=== PATIENT | female | born 1945 | race Caucasian/White ===

== ENCOUNTER 2018-01-20 21:26 | Inpatient (IN) | payer OTHER ==
[2018-01-20] MEDS: fentaNYL PF VIAL 100 MCG/2 ML VIAL IV (22:19)
[2018-01-20] MEDS: IV NORMAL SALINE 1000ML BAG 1,000 ML IV (22:24)
[2018-01-20] MEDS: ONDANSETRON PF 4 MG/2 ML VIAL. IV (23:30)
[2018-01-20] MEDS: MORPHINE SULFATE 4 MG/ML DISP.SYRIN. IV (23:57)
[2018-01-21] MEDS: MORPHINE SULFATE 4 MG/ML DISP.SYRIN. IV ×9 (02:21→16:59)
[2018-01-21 04:55] LABS: ADD MAN DIFF? NO
[2018-01-21 05:04] LABS: BASO % 0 % (0-3); EOS # 0.1 x10^3/uL (0.0-0.7); EOS % 1 % (0-3); HEMATOCRIT 39.9 % (36.0-47.0); HEMOGLOBIN 13.7 g/dL (12.0-15.5); LYMPH # 0.8 x10^3/uL (1.0-4.8); LYMPH % 13 % (24-48); MEAN CORPUSCULAR HEMOGLOBIN 32 pg (25-35); MEAN CORPUSCULAR HGB CONC 34 g/dL (31-37); MEAN CORPUSCULAR VOLUME 94 fL (79-100); MONO # 0.5 x10^3/uL (0.0-1.1); MONO % 9 % (0-9); NEUT # 4.4 x10^3uL (1.8-7.7); NEUT % 76 % (31-73); PLATELET COUNT 143 x10^3/uL (140-400); RED BLOOD COUNT 4.23 x10^6/uL (3.50-5.40); RED CELL DISTRIBUTION WIDTH 13.7 % (11.5-14.5); WHITE BLOOD COUNT 5.7 x10^3/uL (4.0-11.0)
[2018-01-21] MEDS: oxyCODONE/APAP 5/325 1 TAB TABLET PO (05:12)
[2018-01-21] MEDS: ONDANSETRON PF 4 MG/2 ML VIAL. IV (05:12)
[2018-01-21 05:42] LABS: ALBUMIN/GLOBULIN RATIO 0.9 (1.0-1.7); ALK PHOS 337 U/L (46-116); ALT (SGPT) 321 U/L (14-59); ANION GAP 7 (6-14); AST (SGOT) 247 U/L (15-37); BLOOD UREA NITROGEN 13 mg/dL (7-20); BUN/CREATININE RATIO 14 (6-20); CALCIUM 8.8 mg/dL (8.5-10.1); CARBON DIOXIDE 31 mmol/L (21-32); CHLORIDE 97 mmol/L (98-107); CREATININE 0.9 mg/dL (0.6-1.0); GFR 61.7; GLUCOSE 94 mg/dL (70-99); POTASSIUM 3.6 mmol/L (3.5-5.1); SODIUM 135 mmol/L (136-145); TOTAL BILIRUBIN 4.9 mg/dL (0.2-1.0); TOTAL PROTEIN 6.5 g/dL (6.4-8.2)
[2018-01-21] MEDS: IV NORMAL SALINE 1000ML BAG 1,000 ML IV ×2 (08:15→21:01)
[2018-01-21] MEDS: LEVOTHYROXINE 75 MCG TABLET PO (10:00)
[2018-01-21] MEDS: CARVEDILOL 3.125 MG TABLET. PO ×2 (10:00→10:59)
[2018-01-21] MEDS: oxyCODONE/APAP 10/325 1 TAB TABLET PO ×2 (10:00→21:00)
[2018-01-21] MEDS: FOLIC ACID 1 MG TABLET. PO (10:00)
[2018-01-21] MEDS ORDERED: PERFLUTREN PROTEIN-A MICROSPHR 0.22 MG/ML 3 ML VIAL. IV ×2 (12:45→12:48)
[2018-01-21] MEDS: fentaNYL 50MCG/HR PATCH 1 PATCH PATCH.TD72 TD (17:36)
[2018-01-22] MEDS: ONDANSETRON PF 4 MG/2 ML VIAL. IV (02:00)
[2018-01-22] MEDS: MORPHINE SULFATE 4 MG/ML DISP.SYRIN. IV ×11 (02:01→23:21)
[2018-01-22 05:26] LABS: ADD MAN DIFF? NO
[2018-01-22 05:32] LABS: BASO % 1 % (0-3); EOS # 0.1 x10^3/uL (0.0-0.7); EOS % 1 % (0-3); HEMATOCRIT 38.8 % (36.0-47.0); HEMOGLOBIN 13.4 g/dL (12.0-15.5); LYMPH # 0.7 x10^3/uL (1.0-4.8); LYMPH % 13 % (24-48); MEAN CORPUSCULAR HEMOGLOBIN 32 pg (25-35); MEAN CORPUSCULAR HGB CONC 35 g/dL (31-37); MEAN CORPUSCULAR VOLUME 94 fL (79-100); MONO # 0.6 x10^3/uL (0.0-1.1); MONO % 10 % (0-9); NEUT # 4.3 x10^3uL (1.8-7.7); NEUT % 76 % (31-73); PLATELET COUNT 152 x10^3/uL (140-400); RED BLOOD COUNT 4.12 x10^6/uL (3.50-5.40); RED CELL DISTRIBUTION WIDTH 13.3 % (11.5-14.5); WHITE BLOOD COUNT 5.7 x10^3/uL (4.0-11.0)
[2018-01-22 06:03] LABS: ALBUMIN 2.8 g/dL (3.4-5.0); ALK PHOS 321 U/L (46-116); ALT (SGPT) 243 U/L (14-59); ANION GAP 7 (6-14); AST (SGOT) 134 U/L (15-37); BLOOD UREA NITROGEN 13 mg/dL (7-20); CALCIUM 8.8 mg/dL (8.5-10.1); CARBON DIOXIDE 29 mmol/L (21-32); CHLORIDE 99 mmol/L (98-107); CREATININE 0.8 mg/dL (0.6-1.0); DIRECT BILIRUBIN 1.2 mg/dL (0.0-0.2); GFR 70.7; GLUCOSE 103 mg/dL (70-99); POTASSIUM 3.7 mmol/L (3.5-5.1); SODIUM 135 mmol/L (136-145); TOTAL BILIRUBIN 1.7 mg/dL (0.2-1.0); TOTAL PROTEIN 6.4 g/dL (6.4-8.2)
[2018-01-22] MEDS: LEVOTHYROXINE 75 MCG TABLET PO (07:00)
[2018-01-22] MEDS: PANTOPRAZOLE 40 MG TABLET.DR. PO (07:30)
[2018-01-22] MEDS: FOLIC ACID 1 MG TABLET. PO (07:54)
[2018-01-22] MEDS: CARVEDILOL 3.125 MG TABLET. PO ×2 (08:38→16:02)
[2018-01-22] MEDS: oxyCODONE/APAP 10/325 1 TAB TABLET PO ×3 (08:38→23:19)
[2018-01-22] MEDS: METOPROLOL TARTRATE 5 MG/5 ML VIAL. IVP (16:52)
[2018-01-23] MEDS: IV NORMAL SALINE 1000ML BAG 1,000 ML IV ×2 (00:01→19:29)
[2018-01-23 02:09] LABS: HBcIGM CONFIRMATION Negative (Negative); HCV ANTIBODY <0.1 s/co ratio (0.0-0.9); HEP A CONFIRMATION Negative (Negative); HEP B SURFACE AG Negative (Negative)
[2018-01-23] MEDS: MORPHINE SULFATE 4 MG/ML DISP.SYRIN. IV ×9 (02:35→23:05)
[2018-01-23] MEDS: oxyCODONE/APAP 10/325 1 TAB TABLET PO ×5 (02:40→21:12)
[2018-01-23] MEDS: LEVOTHYROXINE 75 MCG TABLET PO (06:21)
[2018-01-23] MEDS: PANTOPRAZOLE 40 MG TABLET.DR. PO (06:21)
[2018-01-23] MEDS: CARVEDILOL 3.125 MG TABLET. PO ×2 (08:28→18:21)
[2018-01-23] MEDS: FOLIC ACID 1 MG TABLET. PO (08:28)
[2018-01-23 13:43] LABS: ADD MAN DIFF? NO
[2018-01-23 13:50] LABS: BASO % 1 % (0-3); EOS # 0.1 x10^3/uL (0.0-0.7); EOS % 2 % (0-3); HEMATOCRIT 40.4 % (36.0-47.0); LYMPH % 19 % (24-48); MEAN CORPUSCULAR HEMOGLOBIN 33 pg (25-35); MEAN CORPUSCULAR HGB CONC 35 g/dL (31-37); MEAN CORPUSCULAR VOLUME 94 fL (79-100); MONO # 0.4 x10^3/uL (0.0-1.1); MONO % 9 % (0-9); NEUT # 3.5 x10^3uL (1.8-7.7); NEUT % 69 % (31-73); PLATELET COUNT 195 x10^3/uL (140-400); RED CELL DISTRIBUTION WIDTH 13.4 % (11.5-14.5)
[2018-01-23 14:04] LABS: ANION GAP 9 (6-14); BLOOD UREA NITROGEN 10 mg/dL (7-20); BUN/CREATININE RATIO 11 (6-20); CALCIUM 8.6 mg/dL (8.5-10.1); CARBON DIOXIDE 28 mmol/L (21-32); CHLORIDE 99 mmol/L (98-107); CREATININE 0.9 mg/dL (0.6-1.0); GFR 61.7; GLUCOSE 122 mg/dL (70-99); POTASSIUM 3.8 mmol/L (3.5-5.1); SODIUM 136 mmol/L (136-145)
[2018-01-23 14:05] LABS: ALBUMIN 3.2 g/dL (3.4-5.0); ALBUMIN/GLOBULIN RATIO 0.8 (1.0-1.7); ALK PHOS 312 U/L (46-116); ALT (SGPT) 197 U/L (14-59); AST (SGOT) 81 U/L (15-37); LIPASE 108 U/L (73-393); TOTAL PROTEIN 7.3 g/dL (6.4-8.2)
[2018-01-23] MEDS: DOCUSATE SODIUM 100 MG CAPSULE. PO (14:59)
[2018-01-23] MEDS: METOPROLOL TARTRATE 5 MG/5 ML VIAL. IVP (15:00)
[2018-01-24] MEDS: oxyCODONE/APAP 10/325 1 TAB TABLET PO ×5 (00:22→21:29)
[2018-01-24] MEDS: LEVOTHYROXINE 75 MCG TABLET PO (04:23)
[2018-01-24] MEDS: NYSTATIN TOPICAL POWDER 15GM BOTTLE. TP ×3 (04:23→21:30)
[2018-01-24] MEDS: PANTOPRAZOLE 40 MG TABLET.DR. PO (04:24)
[2018-01-24] MEDS: MORPHINE SULFATE 4 MG/ML DISP.SYRIN. IV ×5 (04:38→13:39)
[2018-01-24] MEDS ORDERED: GLUCAGON,HUMAN RECOMBINANT 1 MG/ML VIAL. (05:31)
[2018-01-24] MEDS ORDERED: LIDOCAINE 2% PF Vial for OR 5 ML VIAL. (06:55)
[2018-01-24] MEDS ORDERED: DEXAMETHASONE SOD PHOS 20 MG/5 ML VIAL. ×2 (06:55→07:00)
[2018-01-24] MEDS ORDERED: PROPOFOL 20 ML IV (06:55)
[2018-01-24] MEDS ORDERED: ONDANSETRON PF 4 MG/2 ML VIAL. ×2 (06:55→07:00)
[2018-01-24] MEDS ORDERED: ROCURONIUM 50 MG/5 ML VIAL. (06:56)
[2018-01-24] MEDS: IV NORMAL SALINE 1000ML BAG 1,000 ML IV (07:00)
[2018-01-24] MEDS ORDERED: FAMOTIDINE 20 MG/2 ML VIAL (07:00)
[2018-01-24] MEDS ORDERED: MIDAZOLAM HCL/PF 2 MG/2 ML VIAL. (07:01)
[2018-01-24] MEDS ORDERED: fentaNYL PF VIAL 100 MCG/2 ML VIAL (07:01)
[2018-01-24] MEDS: IV RINGERS,LACTATED 1000ML 1,000 ML IV (07:30)
[2018-01-24] MEDS: IOHEXOL 300 MG/ML 100ML VIAL. (07:46)
[2018-01-24] MEDS: BUPIVACAINE-EPI 0.25%-1:200000 50 ML VIAL. (07:46)
[2018-01-24] MEDS ORDERED: GLYCOPYRROLATE 1 MG/5 ML VIAL. (07:49)
[2018-01-24] MEDS: SURGICEL HEMOSTAT 4X8 EACH. (08:10)
[2018-01-24] MEDS ORDERED: NEOSTIGMINE METHYLSULFATE 5 MG/5 ML SYRINGE. (08:24)
[2018-01-24] MEDS ORDERED: SEVOFLURANE 61 TO 120 MINUTES. IH (08:24)
[2018-01-24] MEDS: fentaNYL PF VIAL 100 MCG/2 ML VIAL IV ×2 (08:42→08:48)
[2018-01-24] MEDS ORDERED: DEXTROSE 50% 25 GM / 50ML DISP.SYRIN. IV (08:45)
[2018-01-24] MEDS ORDERED: oxyCODONE IR 5 MG TABLET PO ×3 (08:45)
[2018-01-24] MEDS ORDERED: 0.9 % SODIUM CHLORIDE 10 ML DISP.SYRIN. IV (08:45)
[2018-01-24] MEDS ORDERED: fentaNYL PF VIAL 100 MCG/2 ML VIAL IV (08:45)
[2018-01-24] MEDS ORDERED: ONDANSETRON PF 4 MG/2 ML VIAL. IV (08:45)
[2018-01-24] MEDS ORDERED: diphenhydrAMINE HCL 25 MG CAPSULE PO (08:45)
[2018-01-24] MEDS ORDERED: LIDOCAINE 1% PF 2 ML VIAL. ID (08:45)
[2018-01-24] MEDS ORDERED: MORPHINE SULFATE 10 MG/ML VIAL. IV (08:45)
[2018-01-24] MEDS: PROCHLORPERAZINE 10 MG/2 ML VIAL. IV (08:51)
[2018-01-24] MEDS: fentaNYL 50MCG/HR PATCH 1 PATCH PATCH.TD72 TD (09:00)
[2018-01-24] MEDS ORDERED: diphenhydrAMINE 50 MG/ML VIAL (09:00)
[2018-01-24] MEDS: diphenhydrAMINE 50 MG/ML VIAL IV (09:15)
[2018-01-24 11:13] LABS: ALBUMIN 2.9 g/dL (3.4-5.0); ALBUMIN/GLOBULIN RATIO 0.8 (1.0-1.7); ALK PHOS 256 U/L (46-116); ALT (SGPT) 148 U/L (14-59); ANION GAP 11 (6-14); AST (SGOT) 73 U/L (15-37); BLOOD UREA NITROGEN 7 mg/dL (7-20); BUN/CREATININE RATIO 9 (6-20); CALCIUM 8.8 mg/dL (8.5-10.1); CARBON DIOXIDE 25 mmol/L (21-32); CHLORIDE 101 mmol/L (98-107); CREATININE 0.8 mg/dL (0.6-1.0); GFR 70.7; GLUCOSE 127 mg/dL (70-99); POTASSIUM 3.7 mmol/L (3.5-5.1); SODIUM 137 mmol/L (136-145); TOTAL BILIRUBIN 0.9 mg/dL (0.2-1.0); TOTAL PROTEIN 6.4 g/dL (6.4-8.2)
[2018-01-24] MEDS: CARVEDILOL 3.125 MG TABLET. PO ×2 (13:30→17:00)
[2018-01-24] MEDS: POTASSIUM CL 20MEQ-0.45% NACL 1,000 ML IV (13:37)
[2018-01-24] MEDS: FOLIC ACID 1 MG TABLET. PO (13:37)
[2018-01-24] MEDS ORDERED: ENOXAPARIN 40 MG/0.4 ML SYRINGE. SQ (21:00)
[2018-01-24] MEDS: DOCUSATE SODIUM 100 MG CAPSULE. PO (21:28)
[2018-01-24] MEDS: LACTOBACILLUS RHAMNOSUS GG 1 CAPSULE. PO (21:28)
[2018-01-25] MEDS: POLYETHYLENE GLYCOL 3350 17 GM PACKET. PO (04:20)
[2018-01-25] MEDS: oxyCODONE/APAP 10/325 1 TAB TABLET PO ×5 (04:21→21:27)
[2018-01-25] MEDS: POTASSIUM CL 20MEQ-0.45% NACL 1,000 ML IV (06:23)
[2018-01-25] MEDS: CARVEDILOL 3.125 MG TABLET. PO ×2 (08:00→16:04)
[2018-01-25] MEDS: LACTOBACILLUS RHAMNOSUS GG 1 CAPSULE. PO ×2 (08:32→21:26)
[2018-01-25] MEDS: FOLIC ACID 1 MG TABLET. PO (08:32)
[2018-01-25] MEDS: BISACODYL 10 MG SUPP.RECT. PR (08:32)
[2018-01-25] MEDS: DOCUSATE SODIUM 100 MG CAPSULE. PO ×2 (08:33→21:26)
[2018-01-25] MEDS: PANTOPRAZOLE 40 MG TABLET.DR. PO (08:33)
[2018-01-25] MEDS: LEVOTHYROXINE 75 MCG TABLET PO (08:33)
[2018-01-25] MEDS: NYSTATIN TOPICAL POWDER 15GM BOTTLE. TP ×2 (08:35→21:29)
[2018-01-25 10:25] LABS: MRSA BY PCR Negative (Negative)
[2018-01-25 11:57] LABS: ALBUMIN 2.9 g/dL (3.4-5.0); ALK PHOS 244 U/L (46-116); ALT (SGPT) 116 U/L (14-59); AST (SGOT) 53 U/L (15-37); DIRECT BILIRUBIN 0.4 mg/dL (0.0-0.2); TOTAL BILIRUBIN 0.8 mg/dL (0.2-1.0); TOTAL PROTEIN 6.4 g/dL (6.4-8.2)
[2018-01-25] MEDS: MORPHINE SULFATE 4 MG/ML DISP.SYRIN. IV (23:01)
[2018-01-26] MEDS: oxyCODONE/APAP 10/325 1 TAB TABLET PO ×4 (02:35→21:37)
[2018-01-26] MEDS: LEVOTHYROXINE 75 MCG TABLET PO (05:45)
[2018-01-26] MEDS: PANTOPRAZOLE 40 MG TABLET.DR. PO (05:45)
[2018-01-26] MEDS: POLYETHYLENE GLYCOL 3350 17 GM PACKET. PO (05:48)
[2018-01-26] MEDS: NYSTATIN TOPICAL POWDER 15GM BOTTLE. TP ×2 (09:00→21:39)
[2018-01-26] MEDS ORDERED: BISACODYL 10 MG SUPP.RECT. PR (09:30)
[2018-01-26] MEDS: CARVEDILOL 3.125 MG TABLET. PO ×2 (09:41→16:52)
[2018-01-26] MEDS: SIMVASTATIN 20 MG TABLET PO (09:41)
[2018-01-26] MEDS: DOCUSATE SODIUM 100 MG CAPSULE. PO ×2 (09:41→21:36)
[2018-01-26] MEDS: LACTOBACILLUS RHAMNOSUS GG 1 CAPSULE. PO ×2 (09:41→21:36)
[2018-01-26] MEDS: GABAPENTIN 300 MG CAPSULE. PO (09:42)
[2018-01-26] MEDS: FUROSEMIDE 40 MG TABLET. PO (09:42)
[2018-01-26] MEDS: FOLIC ACID 1 MG TABLET. PO (09:42)
[2018-01-26] MEDS: LISINOPRIL 5 MG TABLET. PO (09:43)
[2018-01-26] MEDS ORDERED: POLYETHYLENE GLYCOL 3350 17 GM PACKET. PO (10:45)
[2018-01-26] MEDS: BISACODYL 10 MG SUPP.RECT. PR (11:03)
[2018-01-26] MEDS: oxyCODONE IR 5 MG TABLET PO (14:54)
[2018-01-26] MEDS: oxyCODONE/APAP 5/325 1 TAB TABLET PO (19:26)
[2018-01-26] MEDS: GABAPENTIN 400 MG CAPSULE. PO (21:37)
[2018-01-27] MEDS: oxyCODONE/APAP 10/325 1 TAB TABLET PO ×4 (03:36→23:29)
[2018-01-27] MEDS: GABAPENTIN 300 MG CAPSULE. PO (06:31)
[2018-01-27] MEDS: LEVOTHYROXINE 75 MCG TABLET PO (06:31)
[2018-01-27] MEDS: PANTOPRAZOLE 40 MG TABLET.DR. PO (06:31)
[2018-01-27] MEDS: CARVEDILOL 3.125 MG TABLET. PO ×2 (08:00→17:00)
[2018-01-27] MEDS: LISINOPRIL 5 MG TABLET. PO (09:00)
[2018-01-27] MEDS: fentaNYL 50MCG/HR PATCH 1 PATCH PATCH.TD72 TD (09:00)
[2018-01-27] MEDS: FUROSEMIDE 40 MG TABLET. PO (09:00)
[2018-01-27] MEDS: POLYETHYLENE GLYCOL 3350 17 GM PACKET. PO (09:01)
[2018-01-27] MEDS: DOCUSATE SODIUM 100 MG CAPSULE. PO ×2 (09:02→20:22)
[2018-01-27] MEDS: FOLIC ACID 1 MG TABLET. PO (09:02)
[2018-01-27] MEDS: SIMVASTATIN 20 MG TABLET PO (09:02)
[2018-01-27] MEDS: LACTOBACILLUS RHAMNOSUS GG 1 CAPSULE. PO ×2 (09:02→20:22)
[2018-01-27] MEDS: NYSTATIN TOPICAL POWDER 15GM BOTTLE. TP ×2 (09:03→20:26)
[2018-01-27] MEDS ORDERED: BISACODYL 5 MG TABLET.DR. PO (12:45)
[2018-01-27] MEDS: oxyCODONE IR 5 MG TABLET PO ×3 (17:07→21:38)
[2018-01-27] MEDS: GABAPENTIN 400 MG CAPSULE. PO (20:25)
[2018-01-28] MEDS: GABAPENTIN 300 MG CAPSULE. PO (05:41)
[2018-01-28] MEDS: PANTOPRAZOLE 40 MG TABLET.DR. PO (05:41)
[2018-01-28] MEDS: LEVOTHYROXINE 75 MCG TABLET PO (05:41)
[2018-01-28] MEDS: oxyCODONE/APAP 10/325 1 TAB TABLET PO ×4 (05:42→21:07)
[2018-01-28] MEDS: FUROSEMIDE 40 MG TABLET. PO (08:58)
[2018-01-28] MEDS: LACTOBACILLUS RHAMNOSUS GG 1 CAPSULE. PO ×2 (08:58→21:07)
[2018-01-28] MEDS: SIMVASTATIN 20 MG TABLET PO (08:58)
[2018-01-28] MEDS: POLYETHYLENE GLYCOL 3350 17 GM PACKET. PO ×2 (08:58→21:21)
[2018-01-28] MEDS: DOCUSATE SODIUM 100 MG CAPSULE. PO ×2 (08:59→21:06)
[2018-01-28] MEDS: LISINOPRIL 5 MG TABLET. PO (08:59)
[2018-01-28] MEDS: FOLIC ACID 1 MG TABLET. PO (08:59)
[2018-01-28] MEDS: NYSTATIN TOPICAL POWDER 15GM BOTTLE. TP ×2 (09:00→21:07)
[2018-01-28] MEDS: CARVEDILOL 3.125 MG TABLET. PO ×2 (09:00→17:06)
[2018-01-28] MEDS: oxyCODONE IR 5 MG TABLET PO (10:39)
[2018-01-28] MEDS ORDERED: CONTRAST GIVEN. MC (16:00)
[2018-01-28] MEDS: IOHEXOL 300 MG/ML 100ML VIAL. IV (16:05)
[2018-01-28] MEDS: IPRATRPIUM/ALBUTEROL 0.5/2.5MG 3 ML NEBU. NEB (16:51)
[2018-01-28] MEDS: GABAPENTIN 400 MG CAPSULE. PO (21:07)
[2018-01-29 02:00] LABS: ALBUMIN 2.7 g/dL (3.4-5.0); ALBUMIN/GLOBULIN RATIO 0.9 (1.0-1.7); ALK PHOS 163 U/L (46-116); ALT (SGPT) 56 U/L (14-59); ANION GAP 6 (6-14); AST (SGOT) 26 U/L (15-37); BLOOD UREA NITROGEN 10 mg/dL (7-20); BUN/CREATININE RATIO 13 (6-20); CALCIUM 8.2 mg/dL (8.5-10.1); CARBON DIOXIDE 30 mmol/L (21-32); CHLORIDE 101 mmol/L (98-107); CREATININE 0.8 mg/dL (0.6-1.0); GFR 70.7; GLUCOSE 127 mg/dL (70-99); POTASSIUM 3.4 mmol/L (3.5-5.1); SODIUM 137 mmol/L (136-145); TOTAL BILIRUBIN 0.5 mg/dL (0.2-1.0); TOTAL PROTEIN 5.8 g/dL (6.4-8.2)
[2018-01-29] MEDS: oxyCODONE/APAP 5/325 1 TAB TABLET PO (03:51)
[2018-01-29 04:44] LABS: HEMATOCRIT 38.5 % (36.0-47.0); HEMOGLOBIN 12.9 g/dL (12.0-15.5); MEAN CORPUSCULAR HEMOGLOBIN 32 pg (25-35); MEAN CORPUSCULAR HGB CONC 34 g/dL (31-37); MEAN CORPUSCULAR VOLUME 94 fL (79-100); PLATELET COUNT 221 x10^3/uL (140-400); RED BLOOD COUNT 4.08 x10^6/uL (3.50-5.40); RED CELL DISTRIBUTION WIDTH 13.9 % (11.5-14.5); WHITE BLOOD COUNT 5.7 x10^3/uL (4.0-11.0)
[2018-01-29] MEDS: PANTOPRAZOLE 40 MG TABLET.DR. PO (06:35)
[2018-01-29] MEDS: GABAPENTIN 300 MG CAPSULE. PO (06:35)
[2018-01-29] MEDS: LEVOTHYROXINE 75 MCG TABLET PO (06:35)
[2018-01-29] MEDS: oxyCODONE IR 5 MG TABLET PO ×3 (06:46→18:52)
[2018-01-29] MEDS: NYSTATIN TOPICAL POWDER 15GM BOTTLE. TP (09:00)
[2018-01-29] MEDS: oxyCODONE/APAP 10/325 1 TAB TABLET PO (09:24)
[2018-01-29] MEDS: SIMVASTATIN 20 MG TABLET PO (09:25)
[2018-01-29] MEDS: DOCUSATE SODIUM 100 MG CAPSULE. PO (09:25)
[2018-01-29] MEDS: LISINOPRIL 5 MG TABLET. PO (09:25)
[2018-01-29] MEDS: LACTOBACILLUS RHAMNOSUS GG 1 CAPSULE. PO (09:25)
[2018-01-29] MEDS: CARVEDILOL 3.125 MG TABLET. PO ×2 (09:26→16:40)
[2018-01-29] MEDS: FUROSEMIDE 40 MG TABLET. PO (09:26)
[2018-01-29] MEDS: FOLIC ACID 1 MG TABLET. PO (09:26)
[2018-01-29] MEDS: metroNIDAZOLE 500 MG TABLET PO (16:39)
== END 2018-01-29 20:00 | disposition home or self-care (01) | DRG 417 ==
LOC: 4 NORTH 01-25 09:39 → 1 WEST ICU 01-24 11:56
PROC: 0FT44ZZ Resection of Gallbladder, Percutaneous Endoscopic Approach (ICD-10-PCS; principal; 2018-01-24 07:25)
PROC: BF131ZZ Fluoroscopy of Gallbladder and Bile Ducts using Low Osmolar Contrast (ICD-10-PCS; 2018-01-24 07:25)
DX: K80.62 Calculus of gallbladder and bile duct with acute cholecystitis without obstruction (principal); J96.00 Acute respiratory failure, unspecified whether with hypoxia or hypercapnia; I50.32 Chronic diastolic (congestive) heart failure; Z68.43 Body mass index [BMI] 50.0-59.9, adult; E66.01 Morbid (severe) obesity due to excess calories; E03.9 Hypothyroidism, unspecified; E78.5 Hyperlipidemia, unspecified; I11.0 Hypertensive heart disease with heart failure; K76.0 Fatty (change of) liver, not elsewhere classified; Z86.73 Personal history of transient ischemic attack (TIA), and cerebral infarction without residual deficits; M32.9 Systemic lupus erythematosus, unspecified; Z88.0 Allergy status to penicillin; Z88.8 Allergy status to other drugs, medicaments and biological substances; M06.9 Rheumatoid arthritis, unspecified; K21.9 Gastro-esophageal reflux disease without esophagitis; G47.33 Obstructive sleep apnea (adult) (pediatric); Z86.010 Personal history of colon polyps; M81.0 Age-related osteoporosis without current pathological fracture; Z96.653 Presence of artificial knee joint, bilateral; Z96.641 Presence of right artificial hip joint; I71.9 Aortic aneurysm of unspecified site, without rupture; R79.89 Other specified abnormal findings of blood chemistry; M79.7 Fibromyalgia
CPT/HCPCS: 36415; 71275; 74181; 74300; 80048; 80053; 80074; 80076; 83690; 85025; 85027; 87641; 88304; 93306; 94618; 94640; 97165-GO; 97535-GO; A7015; J0690; J0780; J1100; J1200; J1610; J1650; J1956; J2250; J2270; J2405; J2704; J2710; J3010; J3490; J7030; J7120; J7620; Q9967; S0028

== ENCOUNTER 2018-10-27 12:58 | Emergency (ER) | payer OTHER ==
[~2018-10-27] VITALS: Ht 165.1 cm; Wt 140.2 kg
[~2018-10-27 12:58] MED LIST: CARV3.1210 PO; DOCU-109 PO; FOLI1TAB16 PO; FURO40TA4 PO; GABA300C18 PO; GABA400C7 PO; LEVO75TA5 PO; LISI2.5T PO; MORP30TA PO; OMEP40CA5 PO; OXYC1TAB22 PO; POLY17PO29 PO; SIMV20TA3 PO
[2018-10-27] MEDS ORDERED: oxyCODONE/APAP 10/325 1 TAB TABLET PO ONE (14:15)
[2018-10-27 14:25] VITALS: BP 134/74
--- NOTE | 2018-10-27 15:01 | RAD ---
Five-view RIBS LEFT AND PA CHEST Clinical indications: PT STATES FEET GOT TANGLED AND SHE FELL LAST WEEK, PAIN IN MID LT RIBS THAT RADIATES OUT AND DOWN LT SIDE. COMPARISON: None available. FINDINGS: There are mild deformities of the lateral aspect of the left fourth and fifth and sixth ribs consistent with nondisplaced acute rib fractures. Minimal pleural reaction is seen on the left side. No significant pleural effusion is seen otherwise. No pneumothorax is seen. No lung consolidation is evident. The heart size is at the upper limits of normal. The mediastinum and pulmonary vasculature and both carmelo are unremarkable. IMPRESSION: Nondisplaced fractures of the left fourth and fifth and sixth ribs. Electronically signed by: Dirk Gore MD (10/27/2018 2:58 PM) [place] [id number]
--- NOTE | 2018-10-27 15:29 | PHYS DOC ---
Past Medical History Past Medical History: Unknown Past Surgical History: No Surgical History Adult General Chief Complaint Chief Complaint: MECHANICAL FALL HPI HPI Patient is a 73 year old female, accompanied by her daughter, with complaints of left lateral rib pain after a fall that happened approximately one week ago. Patient states she was getting ready for bed when she tripped over her feet and fell onto her left side. She denies any dizziness, chest pain, weakness, or headache prior to the fall. She states that the pain in her ribs increases with a deep breath and she reports that she feels like she cannot take a deep breath. Patient also reports intermittent wheezing and sternal tenderness to palpation. Currently she rates her pain a 5 out of 10 on the pain scale. She states that the pain is exacerbated by activity or palpation that causes her pain to shoot to a 10 out of 10 on the pain scale. Patient has a history of lupus, osteoporosis, rheumatoid arthritis, and 3 previous back fractures. She states that she takes 30 mg of morphine twice a day and has oxycodone 10/325 mg tablets for breakthrough pain. She denies any fever, nausea, vomiting, diarrhea , numbness, tingling, or weakness. Review of Systems Review of Systems Constitutional: Denies fever or chills [] Eyes: Denies change in visual acuity, or eye pain [] HENT: Denies nasal congestion or sore throat [] Respiratory: Denies cough, see HPI Cardiovascular: No additional information not addressed in HPI [] GI: Denies abdominal pain, nausea, vomiting, or diarrhea [] Musculoskeletal: Denies back pain or joint pain [] Integument: Denies rash or skin lesions [] Neurologic: Denies headache, focal weakness or sensory changes [] Complete systems were reviewed and found to be within normal limits, except as documented in this note. Current Medications Current Medications Current Medications Medications (Trade) Dose Ordered Sig/Danny Start Time Stop Time Status Last Admin Dose Admin Oxycodone/ Acetaminophen (Percocet 10/325) 1 tab 1X ONCE 10/27/18 14:15 10/27/18 14:16 DC 10/27/18 14:37 1 TAB Allergies Allergies Allergies Coded Allergies Type Severity Reaction Last Updated Verified Penicillins Allergy Severe Anaphylaxis TOLERATES ANCEF 04/29/18 Yes dapsone Adverse Reaction Severe 04/29/18 Yes Physical Exam Physical Exam Constitutional: Well developed, well nourished, no acute distress, non-toxic appearance, obese [] HENT: Normocephalic, atraumatic, bilateral external ears normal,nose normal. [] Eyes: PERRLA, conjunctiva normal, no discharge. [] Neck: Normal range of motion, no tenderness, supple, no stridor. [] Cardiovascular:Heart rate regular rhythm, no murmur [] Lungs & Thorax: Bilateral breath sounds clear to auscultation; sternal TTP no crepitus/deformity; lateral left ribs TTP without crepitus/deformity Skin: Warm, dry, no erythema, no rash, no bruising to Left chest, or sternum. [ ] Back: No bony tenderness Extremities: No cyanosis, no clubbing, ROM intact, no edema. [] Neurologic: Alert and oriented X 3, normal motor function, normal sensory function, no focal deficits noted. [] Psychologic: Affect normal, judgement normal, mood normal. [] Current Patient Data Vital Signs Vital Signs Date Time Temp Pulse Resp B/P (MAP) Pulse Ox O2 Delivery O2 Flow Rate FiO2 10/27/18 15:50 73 16 94 10/27/18 14:25 98.5 134/74 (94) Room Air 98.5 EKG EKG [] Radiology/Procedures Radiology/Procedures PROCEDURE: RIBS LEFT AND PA CHEST Five-view RIBS LEFT AND PA CHEST Clinical indications: PT STATES FEET GOT TANGLED AND SHE FELL LAST WEEK, PAIN IN MID LT RIBS THAT RADIATES OUT AND DOWN LT SIDE. COMPARISON: None available. FINDINGS: There are mild deformities of the lateral aspect of the left fourth and fifth and sixth ribs consistent with nondisplaced acute rib fractures. Minimal pleural reaction is seen on the left side. No significant pleural effusion is seen otherwise. No pneumothorax is seen. No lung consolidation is evident. The heart size is at the upper limits of normal. The mediastinum and pulmonary vasculature and both carmelo are unremarkable. IMPRESSION: Nondisplaced fractures of the left fourth and fifth and sixth ribs.[] Course & Med Decision Making Course & Med Decision Making Pertinent Labs and Imaging studies reviewed. (See chart for details) Dx: multiple fx of Left ribs No pneumothorax or sternal fx. Pt was given incentive spirometer with instructions for use. Continue taking home pain medications as prescribed, one tablet of oxycodone 10/325 was given in the ER. Pt instructed to hold on to a pillow when coughing, sneezing, or taking deep breaths. Follow up with your primary care doctor next week, return to the ER if symptoms worsen. Patient verbalized an understanding of home care, medications, follow-up, and return to ED instructions and was in agreement with the plan of care. [] Dragon Disclaimer Dragon Disclaimer This electronic medical record was generated, in whole or in part, using a voice recognition dictation system. Departure Departure Impression: Primary Impression: Multiple fractures of ribs, left side, initial encounter for closed fracture Disposition: HOME, SELF-CARE Condition: STABLE Referrals: CARLOS SIDDIQUI (PCP) Patient Instructions: Rib Fracture, [id number] Additional Instructions: Use the incentive spirometer as shown every hour while awake. Hold on to a pillow when coughing, sneezing, or taking deep breaths. Continue taking your pain medications at home as prescribed. You may also take tylenol or ibuprofen as needed for pain. Follow up with your primary care doctor next week, return to the ER if symptoms worsen. DORA BAL APRN Oct 27, 2018 15:29
== END 2018-10-27 16:05 | disposition home or self-care (01) ==
LOC: ER 12:58
DX: S22.42XA Multiple fractures of ribs, left side, initial encounter for closed fracture (principal); Z88.0 Allergy status to penicillin; Z88.8 Allergy status to other drugs, medicaments and biological substances; W01.0XXA Fall on same level from slipping, tripping and stumbling without subsequent striking against object, initial encounter; Y93.89 Activity, other specified; Y92.89 Other specified places as the place of occurrence of the external cause; Y99.8 Other external cause status
CPT/HCPCS: 71101; 99284